=== PATIENT | male | born 1980 | race Caucasian/White ===

== ENCOUNTER 2021-02-19 23:55 | Emergency (ER) | payer BC, OTHER ==
[~2021-02-19] VITALS: Ht 180 cm; Wt 95.0 kg
--- NOTE | 2021-02-20 00:14 | ED Abdominal Pain ---
General Stated Complaint: RT SIDE PAIN,NAUSEA Source of Information: Patient Exam Limitations: No Limitations History of Present Illness Date Seen by Provider: Feb 20, 2021 Time Seen by Provider: 00:00 Initial Comments Patient to the ER by private conveyance with his significant other and chief complaint that about 1 hour prior to arrival he was getting ready to go to bed and started having severe right flank and back pain. No dysuria hematuria nausea fevers chills. He took a hydrocodone about 30 minutes ago without significant relief of pain. 7 out of 10, sharp, constant. No history of kidney stones. Allergies and Home Medications Allergies Coded Allergies: No Known Drug Allergies (Unverified , 02/20/21) Patient Home Medication List Home Medication List Reviewed: Yes Cephalexin (Cephalexin) 500 Mg Tablet, 500 MG PO BID Prescribed by: EMI MYLES on 02/20/21 012 Hydrocodone/Acetaminophen (Hydrocodone-Acetamin 5-325 mg) 1 Each Tablet, 1 TAB PO Q4H PRN for PAIN-MODERATE (5-7) Prescribed by: EMI MYLES on 02/20/21 012 Ondansetron (Ondansetron Odt) 4 Mg Tab.rapdis, 4 MG PO Q6H PRN for NAUSEA/VOMITING Prescribed by: EMI MYLES on 02/20/21 012 Tamsulosin HCl (Flomax) 0.4 Mg Cap, 0.4 MG PO DAILY Prescribed by: EMI MYLES on 02/20/21125 Review of Systems Review of Systems Constitutional: No chills, No fever EENTM: No Blurred Vision, No Double Vision Respiratory: Denies Cough, Denies Shortness of Air, Denies SOA at Rest Cardiovascular: Denies Chest Pain, Denies Edema Gastrointestinal: See HPI, Abdominal Pain; Denies Constipated, Denies Diarrhea, Denies Nausea Genitourinary: Denies Burning, Denies Discharge Musculoskeletal: see HPI; No back pain, No joint pain All Other Systems Reviewed Negative Unless Noted: Yes Past Hkplygv-Azjwke-Vxobwc Hx Patient Social History Tobacco Use?: No Use of E-Cig and/or Vaping dev: No Substance use?: No Physical Exam Vital Signs Vital Signs - First Documented 02/20/21 00:07 Temp 36.5 Pulse 94 Resp 14 B/P (MAP) 158/115 (129) Pulse Ox 100 O2 Delivery Room Air Capillary Refill : Height/Weight/BMI Height: '" Weight: lbs. oz. kg; BMI Method: General Appearance: WD/WN, moderate distress HEENT: PERRL/EOMI, pharynx normal Neck: full range of motion, supple, normal inspection Respiratory: lungs clear, normal breath sounds, no respiratory distress, no accessory muscle use Cardiovascular: normal peripheral pulses, regular rate, rhythm, no edema Peripheral Pulses: 2+ Radial Pulses (R), 2+ Radial Pulses (L) Gastrointestinal: normal bowel sounds, non tender, soft, no organomegaly Back: normal inspection, no vertebral tenderness, CVA tenderness (R) Neurologic/Psychiatric: alert, normal mood/affect, oriented x 3 Skin: normal color, warm/dry Progress/Results/Core Measures Results/Orders Lab Results Laboratory Tests Test 02/20/21 00:09 02/20/21 00:43 Range/Units White Blood Count 9.0 4.3-11.0 10^3/uL Red Blood Count 5.04 4.30-5.52 10^6/uL Hemoglobin 15.3 13.3-17.7 g/dL Hematocrit 45 40-54 % Mean Corpuscular Volume 90 80-99 fL Mean Corpuscular Hemoglobin 30 25-34 pg Mean Corpuscular Hemoglobin Concent 34 32-36 g/dL Red Cell Distribution Width 13.1 10.0-14.5 % Platelet Count 278 130-400 10^3/uL Mean Platelet Volume 9.8 9.0-12.2 fL Immature Granulocyte % (Auto) 0 % Neutrophils (%) (Auto) 44 42-75 % Lymphocytes (%) (Auto) 47 H 12-44 % Monocytes (%) (Auto) 8 0-12 % Eosinophils (%) (Auto) 1 0-10 % Basophils (%) (Auto) 0 0-10 % Neutrophils # (Auto) 4.0 1.8-7.8 10^3/uL Lymphocytes # (Auto) 4.2 H 1.0-4.0 10^3/uL Monocytes # (Auto) 0.7 0.0-1.0 10^3/uL Eosinophils # (Auto) 0.1 0.0-0.3 10^3/uL Basophils # (Auto) 0.0 0.0-0.1 10^3/uL Immature Granulocyte # (Auto) 0.0 0.0-0.1 10^3/uL Sodium Level 138 135-145 MMOL/L Potassium Level 3.7 3.6-5.0 MMOL/L Chloride Level 103 98-107 MMOL/L Carbon Dioxide Level 21 21-32 MMOL/L Anion Gap 14 5-14 MMOL/L Blood Urea Nitrogen 15 7-18 MG/DL Creatinine 1.33 H 0.60-1.30 MG/DL Estimat Glomerular Filtration Rate 59 BUN/Creatinine Ratio 11 Glucose Level 146 H 70-105 MG/DL Calcium Level 9.9 8.5-10.1 MG/DL Corrected Calcium 9.6 8.5-10.1 MG/DL Total Bilirubin 0.6 0.1-1.0 MG/DL Aspartate Amino Transf (AST/SGOT) 22 5-34 U/L Alanine Aminotransferase (ALT/SGPT) 29 0-55 U/L Alkaline Phosphatase 90 40-136 U/L Total Protein 7.3 6.4-8.2 GM/DL Albumin 4.4 3.2-4.5 GM/DL Urine Color YELLOW Urine Clarity SL CLOUDY Urine pH 8.5 5-9 Urine Specific [place] 1.010 L 1.016-1.022 Urine Protein TRACE H NEGATIVE Urine Glucose (UA) NEGATIVE NEGATIVE Urine Ketones 2+ H NEGATIVE Urine Nitrite NEGATIVE NEGATIVE Urine Bilirubin NEGATIVE NEGATIVE Urine Urobilinogen 0.2 < = 1.0 MG/DL Urine Leukocyte Esterase NEGATIVE NEGATIVE Urine RBC (Auto) TRACE-I H NEGATIVE Urine RBC RARE /HPF Urine WBC NONE /HPF Urine Squamous Epithelial Cells 2-5 /HPF Urine Crystals NONE /LPF Urine Bacteria TRACE /HPF Urine Casts NONE /LPF Urine Mucus LARGE H /LPF Urine Culture Indicated NO My Orders Orders - EMI MYLES Ua Culture If Indicated (02/20/21 00:00) Ketorolac Injection (Toradol Injection) (02/20/21 00:15) Ct Abd/Pelvis Wo(Kidney Stone) (02/20/21 00:09) Cbc With Automated Diff (02/20/21 00:09) Comprehensive Metabolic Panel (02/20/21 00:09) Ed Iv/Invasive Line Start (02/20/21 00:09) Rx-Hydrocodone/Apap 5-325 Mg (Rx-Vicodin (02/20/21 01:30) Medications Given in ED Vital Signs/I&O 02/20/21 02/20/21 00:07 01:47 Temp 36.5 Pulse 94 86 Resp 14 16 B/P (MAP) 158/115 (129) 137/92 Pulse Ox 100 99 O2 Delivery Room Air Room Air Progress Progress Note : Time: 00:13 Progress Note Anderson's punch positive right flank. CT without IV contrast kidney stone study. Toradol, labs. Diagnostic Imaging Diagonstic Imaging: CT Plain Films/CT/US/NM/MRI: abdomen, pelvis Comments 2 mm stone at the UVJ right side [facility], [place] NAME: [facility] REC#: [id number] PT STATUS: DEP ER : 1980 PHYSICIAN: EMI MYLES MD ADMIT DATE: 02/20/21/ER Signed Date of Exam:02/20/21 CT ABD/PELVIS WO(KIDNEY STONE) PROCEDURE: CT urinary tract, rule out kidney stone. TECHNIQUE: Multiple contiguous axial images were obtained through the abdomen and pelvis without the use of intravenous contrast. Auto Exposure Controls were utilized during the CT exam to meet ALARA standards for radiation dose reduction. INDICATION: Right-sided flank pain and nausea. FINDINGS: There is mild hydronephrosis of the right kidney. The right ureter is mildly dilated down to the ureterovesical junction where there is a 2 mm calculus present. The left kidney and ureter are normal. The bladder is normal. The liver, gallbladder and bile ducts are normal. The spleen, pancreas and adrenals are normal. No acute bowel abnormality is seen. There is no ascites. There is no adenopathy. There is no acute bony abnormality. IMPRESSION: There is a 2 mm calculus at the right ureterovesical junction causing obstruction at this site. No other acute abnormality is seen. Dictated by: Dictated on workstation # [id number] Dict: 02/20/21713 Trans: 02/20/21817 [id number] Interpreted by: HAILEY MATIAS MD Electronically signed by: HAILEY MATIAS MD 02/20/21817 Reviewed: Reviewed by Me Departure Impression Primary Impression: Ureteral calculus, right Disposition: 01 HOME, SELF-CARE Condition: Stable Departure-Patient Inst. Decision time for Depature: 01:15 Referrals: TITO HONEYCUTT MD (PCP/Family) Primary Care Physician ADÁN CRAWLEY MD Patient Instructions: Kidney Stones (DC) Add. Discharge Instructions: Drink lots of fluids. Tylenol 650 mg every 8 hours as needed for pain. Motrin 800 mg every 8 hours as needed for pain. Heat applied to the back as needed. Hydrocodone 1 tablet every 6 hours as necessary for breakthrough pain. Flomax 1 capsule daily until you pass the stones. Ondansetron 1 tablet every 6 hours under the tongue as necessary for nausea and /or vomiting. Keflex 1 capsule twice a day for the next week to treat possible UTI. Strain your urine using the strainer to see when the stones pass. Occasionally stones will break up and not be caught in the strainer. Symptoms should resolve 1 to 2 days after the passing of stones. If your symptoms are going on into early next week then I suggest you follow-up with Dr. Crawley, urology. Return to the nearest ER if you are having intractable pain and/or nausea, fever etc. Scripts Hydrocodone/Acetaminophen (Hydrocodone-Acetamin 5-325 mg) 1 Each Tablet 1 TAB PO Q4H PRN for PAIN-MODERATE (5-7) for 3 Days, #10 TAB 0 Refills Prov: EMI MYLES 02/20/21 Tamsulosin HCl (Flomax) 0.4 Mg Cap 0.4 MG PO DAILY for 7 Days, #7 CAP 0 Refills Prov: EMI MYLES 02/20/21 Ondansetron (Ondansetron Odt) 4 Mg Tab.rapdis 4 MG PO Q6H PRN for NAUSEA/VOMITING, #8 TAB 0 Refills Prov: EMI MYLES 02/20/21 Cephalexin (Cephalexin) 500 Mg Tablet 500 MG PO BID for 7 Days, #14 TAB 0 Refills Prov: EMI MYLES 02/20/21 Work/School Note: Work Release Form Date Seen in the Emergency Department: Feb 20, 2021 Return to Work: Feb 21, 2021 Restrictions: No Restrictions Copy Copies To 1: ADÁN CRAWLEY MD, TITUS J Feb 20, 2021 00:14
[2021-02-20] MEDS ORDERED: KETOROLAC 30 MG/ML VIAL IVP ONE (00:15)
[2021-02-20 00:23] LABS: BASOPHILS % (AUTO) 0 % (0-10); EOSINOPHILS # (AUTO) 0.1 10^3/uL (0.0-0.3); EOSINOPHILS % (AUTO) 1 % (0-10); HEMATOCRIT 45 % (40-54); HEMOGLOBIN 15.3 g/dL (13.3-17.7); LYMPHOCYTES # (AUTO) 4.2 10^3/uL (1.0-4.0); LYMPHOCYTES % (AUTO) 47 % (12-44); MEAN CORPUSCULAR HEMOGLOBIN 30 pg (25-34); MEAN CORPUSCULAR HGB CONC 34 g/dL (32-36); MEAN CORPUSCULAR VOLUME 90 fL (80-99); MEAN PLATELET VOLUME 9.8 fL (9.0-12.2); MONOCYTES # (AUTO) 0.7 10^3/uL (0.0-1.0); MONOCYTES % (AUTO) 8 % (0-12); NEUTROPHILS % (AUTO) 44 % (42-75); PLATELET COUNT 278 10^3/uL (130-400)
[2021-02-20 00:43] LABS: ALBUMIN 4.4 GM/DL (3.2-4.5); POTASSIUM 3.7 MMOL/L (3.6-5.0)
[2021-02-20 00:44] LABS: CALCIUM 9.9 MG/DL (8.5-10.1)
[2021-02-20 00:45] LABS: TOTAL PROTEIN 7.3 GM/DL (6.4-8.2)
[2021-02-20 00:47] LABS: BILIRUBIN,TOTAL 0.6 MG/DL (0.1-1.0)
[2021-02-20 00:49] LABS: CREATININE SERUM 1.33 MG/DL (0.60-1.30)
[2021-02-20 00:52] LABS: BILIRUBIN,URINE NEGATIVE (NEGATIVE); CLARITY,URINE SL CLOUDY; COLOR,URINE YELLOW; GLUCOSE, URINE (UA) NEGATIVE (NEGATIVE); KETONES,URINE 2+ (NEGATIVE); LEUKOCYTE ESTERASE ,URINE NEGATIVE (NEGATIVE); NITRITE,URINE NEGATIVE (NEGATIVE); PH,URINE 8.5 (5-9); PROTEIN,URINE TRACE (NEGATIVE)
[2021-02-20 01:02] LABS: BACTERIA,URINE TRACE /HPF; RBC,URINE RARE /HPF
[2021-02-20] MEDS ORDERED: ACHD5005 PO (01:26)
[2021-02-20] MEDS ORDERED: ONDA4TAB11 PO (01:26)
[2021-02-20] MEDS ORDERED: CEPH500T PO (01:26)
[2021-02-20] MEDS ORDERED: TMSL.4C PO (01:26)
[2021-02-20 01:47] VITALS: BP 137/92
--- NOTE | 2021-02-20 07:22 | Diagnostic Imaging Report ---
PROCEDURE: CT urinary tract, rule out kidney stone. TECHNIQUE: Multiple contiguous axial images were obtained through the abdomen and pelvis without the use of intravenous contrast. Auto Exposure Controls were utilized during the CT exam to meet ALARA standards for radiation dose reduction. INDICATION: Right-sided flank pain and nausea. FINDINGS: There is mild hydronephrosis of the right kidney. The right ureter is mildly dilated down to the ureterovesical junction where there is a 2 mm calculus present. The left kidney and ureter are normal. The bladder is normal. The liver, gallbladder and bile ducts are normal. The spleen, pancreas and adrenals are normal. No acute bowel abnormality is seen. There is no ascites. There is no adenopathy. There is no acute bony abnormality. IMPRESSION: There is a 2 mm calculus at the right ureterovesical junction causing obstruction at this site. No other acute abnormality is seen. Dictated by: Dictated on workstation # [id number]
== END 2021-02-20 01:45 | disposition home or self-care (01) ==
LOC: EDUNIT# 23:55 → ER 02-20
DX: N13.2 Hydronephrosis with renal and ureteral calculous obstruction (principal)
CPT/HCPCS: 36415; 74176; 80053; 81000; 85025

== ENCOUNTER 2022-02-09 22:06 | Emergency (ER) | payer BC ==
[~2022-02-09] VITALS: Ht 180 cm; Wt 94.0 kg
[~2022-02-09 22:06] MED LIST: ACHD5005 PO; CEPH500T PO; ONDA4TAB11 PO; TMSL.4C PO
[2022-02-09 22:12] VITALS: BP 164/101
--- NOTE | 2022-02-09 22:18 | ED Integumentary General ---
General Chief Complaint: Bite-Animal/Human/Insect Stated Complaint: SORE ON L MIDDLE FINGER History of Present Illness Date Seen by Provider: Feb 09, 2022 Time Seen by Provider: 22:14 Initial Comments Patient states that he was working in a garage around 5 o'clock today and thinks that he got bit by a brown spider bite. Did not actually see what bit him. Reports that he noticed fang boykin to his finger. Denies drainage from the area. Timing/Duration: this afternoon Severity: mild Location: hands Possible Cause: insect bite Associated Symptoms: No fever; tingling (BISI SINGH APRN) Allergies and Home Medications Allergies Coded Allergies: No Known Drug Allergies (Unverified , 02/20/21) Patient Home Medication List Home Medication List Reviewed: Yes (BISI SINGH APRN) Cephalexin (Cephalexin) 500 Mg Tablet, 500 MG PO BID Prescribed by: EMI MYLES on 02/20/21 0126 Hydrocodone/Acetaminophen (Hydrocodone-Acetamin 5-325 mg) 1 Each Tablet, 1 TAB PO Q4H PRN for PAIN-MODERATE (5-7) Prescribed by: EMI MYLES on 02/20/21 0127 Ondansetron (Ondansetron Odt) 4 Mg Tab.rapdis, 4 MG PO Q6H PRN for NAUSEA/VOMITING Prescribed by: EMI MYLES on 02/20/21 0126 Sulfamethoxazole/Trimethoprim (Bactrim Ds Tablet) 800 Mg-160 Mg Tablet, 1 EACH PO BID Prescribed by: Bisi Singh on 02/09/22 222 Tamsulosin HCl (Flomax) 0.4 Mg Cap, 0.4 MG PO DAILY Prescribed by: EMI MYLES on 02/20/21 0126 Review of Systems Review of Systems Constitutional: No dizziness, No fever Respiratory: no symptoms reported Cardiovascular: no symptoms reported Skin: lesions (left middle finger); No pruritus, No rash (BISI SINGH APRN) All Other Systems Reviewed Negative Unless Noted: Yes (BISI SINGH APRN) Past Zjeocmg-Kjyhdt-Smmhux Hx Family Medical History Reviewed Nursing Family Hx (BISI SINGH APRN) Physical Exam Vital Signs Vital Signs - First Documented 02/09/22 22:12 Temp 35.6 Pulse 86 Resp 20 B/P (MAP) 164/101 (122) Pulse Ox 97 O2 Delivery Room Air (KRISHNA GILBERT MD) Vital Signs Capillary Refill : (BISI SINGH APRN) General Appearance: WD/WN, no apparent distress Extremities: normal range of motion, non-tender Neurologic/Psychiatric: alert, normal mood/affect, oriented x 3 Skin: other (left distal middle finger with fissure noted to medial edge of finger by nail consistent with paronychia with fissure and mild erythema, no fang boykin appreciated, exam consistent with cellulitis and not spider bite, no drainage) (BISI SINGH APRN) Progress/Results/Core Measures Results/Orders Medications Given in ED Current Medications Medications Dose Ordered Sig/Nicole Route Start Time Stop Time Status Last Admin Dose Admin Trimethoprim/ Sulfamethoxazole 1 ea ONCE ONCE PO 02/09/22 22:30 02/09/22 22:27 DC 02/09/22 22:24 1 EA (KRISHNA GILBERT MD) Vital Signs/I&O 02/09/22 22:12 Temp 35.6 Pulse 86 Resp 20 B/P (MAP) 164/101 (122) Pulse Ox 97 O2 Delivery Room Air (KRISHNA GILBERT MD) Progress Progress Note : Progress Note Patient exam consistent with cellulitis secondary to fissure and paronychia. No fang boykin appreciated that patient reported. Will start on antibiotics. Reasons to return to the ER were discussed with patient along with home treatments. (BISI SINGH APRN) Departure Impression Primary Impression: Cellulitis Qualified Codes: L03.012 - Cellulitis of left finger Disposition: 01 HOME, SELF-CARE Condition: Stable Departure-Patient Inst. Decision time for Depature: 22:19 (BISI SINGH APRN) Referrals: TITO HONEYCUTT MD (PCP/Family) Primary Care Physician Patient Instructions: Cellulitis (Skin Infection), Adult (DC) Add. Discharge Instructions: 1. Bactrim as directed. 2. Push fluids. 3. Alternate Tylenol/Ibuprofen as needed for pain. 4. Follow up with PCP as needed. 5. Return here if worse or concerns. All discharge instructions reviewed with patient and/or family. Voiced understanding. Scripts Sulfamethoxazole/Trimethoprim (Bactrim Ds Tablet) 800 Mg-160 Mg Tablet 1 EACH PO BID for 7 Days, #14 TAB Prov: BISI SINGH APRN 02/09/22 ATTENDING PHYSICIAN NOTE: I was physically present as attending physician in the emergency department during the care of this patient, but I was not directly involved in the decision making or delivery of care for this patient. (KRISHNA GILBERT MD) BISI SINGH APRN Feb 09, 2022 22:18 KRISHNA GILBERT MD Feb 10, 2022 04:10
[2022-02-09] MEDS ORDERED: SULF-221 PO (22:20)
[2022-02-09] MEDS ORDERED: TRIM/SULFAMETH 160/800 (SEPTRA DS) TAB PO ONE (22:30)
== END 2022-02-09 22:24 | disposition home or self-care (01) ==
LOC: EDUNIT# 22:06 → ER 22:07
DX: L03.012 Cellulitis of left finger (principal)
CPT/HCPCS: 99281

== ENCOUNTER → 2022-06-22 | Outpatient (CLI) | payer BC ==
[~2022-06-22] MED LIST changes: +SULF-221 PO
--- NOTE | 2022-06-22 16:48 | Diagnostic Imaging Report ---
KNEE, RIGHT, 3 VIEWS COMPARISON: None available. INDICATION: Right knee pain TECHNIQUE: Non-weight bearing AP, oblique, and lateral views of the right knee. FINDINGS: No acute fracture or traumatic malalignment. Chronic fragmentation of the anterior tibial tuberosity. The joint spaces are well maintained. Large knee joint effusion. Normal variant fabella. IMPRESSION: 1. Large knee joint effusion. 2. No acute osseous abnormality. Dictated by: Dictated on workstation # [id number]
== END ==
LOC: RAD 16:23
PROVIDERS: ATTEND Registered Nurse Critical Care Medicine
DX: M25.461 Effusion, right knee (principal); M25.561 Pain in right knee; U07.1 COVID-19; M79.18 Myalgia, other site
CPT/HCPCS: 73562